=== PATIENT | male | born 1955 | race Caucasian/White ===

== ENCOUNTER → 2018-06-06 | Outpatient (CLI) | payer OTHER ==
--- NOTE | 2018-06-06 13:45 | 2DMMODE ---
[place] [address] 2 D/M-MODE ECHOCARDIOGRAM Name: SHANTAL FREEMAN Room: [facility]#: [id number] Admission: 06/06/18 Attend Phys: Roberto Mcdonald, Discharge: Date of : 53 Date of Service: 06/06/18 1345 Report #: [id number] THIS REPORT FOR: //name// APPROVED REPORT Study performed: 06/06/2018 08:10:43 EXAM: Comprehensive 2D, Doppler, and color-flow Echocardiogram Patient Location: Out-Patient BSA: 2.11 HR: 66 bpm BP: 102/70 mmHg Other Information Study Quality: Good Indications Cardiomyopathy 2D Dimensions IVSd: 20.73 (7-11mm) LVOT Diam: 20.93 (18-24mm) LVDd: 42.16 mm PWd: 20.63 (7-11mm) Ascending Ao: 31.06 (22-36mm) LVDs: 30.61 (25-40mm) Aortic Root: 34.55 mm Volumes Left Atrial Volume (Systole) LA ESV Index: 38.10 mL/m2 Aortic Valve AoV Peak Carmelo.: 1.20 m/s AO Peak Gr.: 5.80 mmHg LVOT Max P.80 mmHg AO Mean Gr.: 3.60 mmHg LVOT Mean P.44 mmHg LVOT Max V: 0.84 m/s AO V2 VTI: 20.98 cm LVOT Mean V: 0.55 m/s JEFFERY (VTI): 2.48 cm2 LVOT V1 VTI: 15.14 cm Mitral Valve E/A Ratio: 4.56 MV Decel. Time: 153.32 ms MV E Max Carmelo.: 0.95 m/s MV PHT: 44.46 ms MVA (PHT): 4.95 cm2 [place] [address] 2 D/M-MODE ECHOCARDIOGRAM Name: SHANTAL FREEMAN Room: [facility]#: [id number] Admission: 06/06/18 Attend Phys: Roberto Mcdonald, Discharge: Date of : 53 Date of Service: 06/06/18 1345 Report #: [id number] TDI E/Lateral E': 13.57 E/Medial E': 19.00 Medial E' Carmelo.: 0.05 m/s Lateral E' Carmelo.: 0.07 m/s Pulmonary Valve PV Peak Carmelo.: 0.70 m/s PV Peak Gr.: 1.99 mmHg Tricuspid Valve RAP Estimate: 5.00 mmHg TR Peak Gr.: 22.18 mmHg RVSP: 27.18 mmHg PA Pressure: 27.18 mmHg Left Ventricle The left ventricle is normal size. Moderate concentric left ventricular hypertrophy. Left ventricular systolic function is borderline. LVEF is 45-50%. The left ventricular diastolic function is normal. Right Ventricle The right ventricle is normal size. The right ventricular systolic function is normal. Atria Left atrium is mildly dilated. Right atrium is mildly dilated. Aortic Valve The aortic valve is normal in structure. Trace aortic regurgitation. There is no aortic valvular stenosis. Mitral Valve The mitral valve is normal in structure. Mild mitral regurgitation. No evidence of mitral valve stenosis. Tricuspid Valve The tricuspid valve is normal in structure. Mild tricuspid regurgitation. Pulmonic Valve The pulmonary valve is normal in structure. There is no pulmonic valvular regurgitation. Great Vessels The aortic root is normal in size. IVC is [place] [address] 2 D/M-MODE ECHOCARDIOGRAM Name: SHANTAL FREEMAN [facility] [id number] Admission: 06/06/18 Attend Phys: Roberto Mcdonald, Discharge: Date of : 53 Date of Service: 06/06/18 1345 Report #: [id number] collapses >50% with inspiration. Pericardium There is no pericardial effusion. <Conclusion> Moderate concentric left ventricular hypertrophy. LVEF is 45-50%. Left atrium is mildly dilated. Mild mitral regurgitation. <ELECTRONICALLY SIGNED> By: Shantal Padron MD, FACC 06/06/18 1345 1345 1345 Shantal Padron MD, FACC /INF
== END ==
LOC: M.CRD 08:00
DX: I08.1 Rheumatic disorders of both mitral and tricuspid valves (principal); B33.24 Viral cardiomyopathy; I50.41 Acute combined systolic (congestive) and diastolic (congestive) heart failure

== ENCOUNTER → 2020-02-03 | Outpatient (CLI) | payer MEDICARE | LOC: M.LAB 05:51 | PROVIDERS: ATTEND Anesthesiology | DX: E87.6 Hypokalemia (principal) ==